=== PATIENT | male | born 1950 | race American Indian/Alaskan Native ===

== ENCOUNTER 2020-12-08 08:34 | Outpatient (CLI) | payer MEDICARE ==
--- NOTE | 2020-12-08 09:42 | Ultrasound Report ---
LIMITED RUQ ABDOMINAL ULTRASOUND INDICATION: right upper quadrant pain/R10.11. COMPARISON: No relevant prior imaging study available. FINDINGS: Pancreas: Visualized portions show no significant abnormality. Abdominal Aorta: No significant abnormality. IVC: No significant abnormality. Liver: The liver measures 13.5 cm in length. Diffusely increased hepatic echogenicity which typically indicates hepatic steatosis.. Normal hepatopedal blood flow in the main portal vein. Gallbladder: No significant abnormality. Bile ducts: No significant abnormality. Common bile duct measures 5.2 mm. Right kidney: No significant abnormality visualized.. Free fluid: None. Additional Findings: None. IMPRESSION: 1. Sonographic findings suggesting hepatic steatosis. Signer Name: Ryan Mi MD Signed: 12/08/2020 9:38 AM Workstation Name: [id number]
== END 2020-12-08 08:35 | disposition home or self-care (01) ==
LOC: SPVWC 08:34
PROVIDERS: ATTEND Internal Medicine
DX: R10.11 Right upper quadrant pain (principal)
CPT/HCPCS: 76705